=== PATIENT | male | born 1985 | race Caucasian/White ===

== ENCOUNTER 2017-01-25 20:29 | Emergency (ER) | payer BC ==
--- NOTE | ~2017-01-25 | ER ---
PATIENT'S NAME: MARIELLA MAKI [facility] AGE: 31 Y [address] ROOM: [place] [id number] LOCATION: [facility] ADMIT DATE: 01/25/2017 ER/Outpatient Report DISCHARGE DATE: 01/25/2017 FAMILY PHYSICIAN: Gerry Herring MD ATTENDING PHYSICIAN: Gordon Gaming Time of Arrival: 2022. Time of Evaluation: 2022. CHIEF COMPLAINT: Abdominal laceration. HISTORY OF PRESENT ILLNESS: The patient states he was sharpening his [place] knife when it slipped off the loader magazine grinder and cut him in the left upper abdominal area. He said he tried to use Steri-Strips to close it, but it keeps gaping open. He denies having any pain. Does not feel short of breath. Incident occurred just prior to arrival. ALLERGIES: HE HAS NO KNOWN ALLERGIES. CURRENT MEDICATIONS: On his chart and reviewed by me. PAST MEDICAL HISTORY: 1. Anxiety. 2. GERD. PAST SURGICAL HISTORY: Shoulder surgery. SOCIAL HISTORY: He denies use of tobacco, drugs, or alcohol. IMMUNIZATIONS: His last tetanus shot was on 03/24/2013. REVIEW OF SYSTEMS: All negative other than those mentioned in the HPI. PHYSICAL EXAMINATION: VITAL SIGNS: He weighed 101 kg. Blood pressure is 141/74, pulse of 94, respirations 18, temperature of 98.2 tympanic, and O2 saturation is 98% on room air. PATIENT'S NAME: MARIELLA AMKI [facility] AGE: 31 Y [address] ROOM: [place] [id number] LOCATION: [facility] ADMIT DATE: 01/25/2017 ER/Outpatient Report DISCHARGE DATE: 01/25/2017 FAMILY PHYSICIAN: Gerry Herring MD ATTENDING PHYSICIAN: Gordon Gaming GENERAL: He is awake, alert, and oriented x4. SKIN: [place], warm, and dry. RESPIRATIONS: Even and nonlabored. Lung sounds are clear throughout. HEART: Regular rate and rhythm. ABDOMEN: The patient has a 7 cm laceration to the left upper abdomen that goes just through the subcutaneous tissue. It is gaping open. EMERGENCY ROOM COURSE: Laceration was cleansed well with saline and Betadine, closed with 4-0 Ethilon. The patient tolerated the procedure well. Dressing was applied. IMPRESSION: Laceration with simple closure. PLAN: Home. Rest. Keep it clean and dry as possible. Follow up with primary provider as needed. Suture removal in 10 to 14 days. He verbalized understanding. WILL TOURE APRN FOR DO FÉLIX GRECO/january /[id number] d: 01/26/17 012 t: 01/27/172006, OUTPATIENT REPORT
[~2017-01-25 20:29] MED LIST: ADVIL200 MG PO; ATIVAN0.5 MG/1 M PO; CIPRO500 MG PO; FLAGYL500 MG PO; REMERON45 MG PO; TOPAMAX100 MG PO
== END 2017-01-25 20:53 | disposition disaster alternative care site (69) ==
LOC: GACC 20:29
PROC: 0HQ7XZZ Repair Abdomen Skin, External Approach (ICD-10-PCS; principal; 2017-01-25)
DX: S31.111A Laceration without foreign body of abdominal wall, left upper quadrant without penetration into peritoneal cavity, initial encounter (principal); F41.9 Anxiety disorder, unspecified; K21.9 Gastro-esophageal reflux disease without esophagitis; Z98.890 Other specified postprocedural states; Z79.891 Long term (current) use of opiate analgesic; Z79.899 Other long term (current) drug therapy; W26.0XXA Contact with knife, initial encounter